=== PATIENT | male | born 1980 | race Caucasian/White ===

== ENCOUNTER 2021-08-30 13:34 | Emergency (ER) | payer MEDICAID ==
[~2021-08-30] VITALS: Ht 175.3 cm; Wt 74.8 kg
[2021-08-30 13:35] VITALS: BP 143/70
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
[2021-08-30] MEDS ORDERED: HYDROcodone/APAP 5/325 MG 1 TAB TAB PO ONE (13:55)
[2021-08-30] MEDS ORDERED: ONDANSETRON 4 MG ODT PO ONE (13:55)
[2021-08-30] MEDS ORDERED: IBUP-2213 PO (15:11)
[2021-08-30] MEDS ORDERED: ACET-8386 PO (15:11)
[2021-08-30] MEDS ORDERED: ONDA-188 SL (15:13)
[2021-08-30] MEDS ORDERED: BACITRACIN OINT 500 UNITS/GM PKT TP ONE (15:30)
--- NOTE | 2021-08-30 16:06 | NUR ---
Patient discharged with v/s stable. Written and verbal after care instructions given and explained. Patient verbalized understanding. Ambulatory with steady gait. All questions addressed prior to discharge. Advised to follow up with PMD.
== END 2021-08-30 16:05 | disposition home or self-care (01) ==
LOC: MED 13:34
DX: S06.0X0A Concussion without loss of consciousness, initial encounter (principal); S20.213A Contusion of bilateral front wall of thorax, initial encounter; S00.03XA Contusion of scalp, initial encounter; M54.2 Cervicalgia; F12.90 Cannabis use, unspecified, uncomplicated; Z79.899 Other long term (current) drug therapy; Z79.1 Long term (current) use of non-steroidal anti-inflammatories (NSAID); Z79.891 Long term (current) use of opiate analgesic; Y08.89XA Assault by other specified means, initial encounter; Y93.89 Activity, other specified; Y92.009 Unspecified place in unspecified non-institutional (private) residence as the place of occurrence of the external cause; Y99.8 Other external cause status
CPT/HCPCS: 70450; 71111; 72125; 99284; Q0162

== ENCOUNTER 2022-05-31 10:45 | Emergency (ER) | payer SELFPAY ==
[~2022-05-31] VITALS: Ht 180.3 cm; Wt 86.2 kg
[~2022-05-31 10:45] MED LIST: ACET-8905 PO; IBUP-2213 PO; ONDA-188 SL
[2022-05-31 11:12] VITALS: BP 141/87
--- NOTE | 2022-05-31 12:00 | NUR ---
EVALUATING THE PATIENT
[2022-05-31] MEDS ORDERED: DICYCLOMINE HCL LIQUID 20 MG, ALUMINUM HYD/MAG/SIMETHICONE 30 ML, LIDOCAINE VISCOUS 2% ... PO ONE ×3 (12:20)
[2022-05-31] MEDS ORDERED: ONDANSETRON 4 MG ODT PO ONE (12:20)
[2022-05-31] MEDS ORDERED: ALUMINUM HYD/MAG/SIMETHICONE 30 ML UDC ONE (12:24)
[2022-05-31] MEDS ORDERED: DICYCLOMINE HCL LIQUID 10 MG/5 ML UDC ONE (12:24)
[2022-05-31 13:00] LABS: BASOPHILS % (AUTO) 0.2 % (0.0-2.0); EOSINOPHILS # (AUTO) 0.2 K/uL (0-0.4); EOSINOPHILS % (AUTO) 1.4 % (0.0-4.0); HEMATOCRIT 45.5 % (36-52); HEMOGLOBIN 15.1 g/dL (12.0-18.0); LYMPHOCYTES # (AUTO) 1.7 K/uL (2.0-11.5); LYMPHOCYTES % (AUTO) 14.7 % (20.5-51.1); MEAN CORPUSCULAR HEMOGLOBIN 28 pg (27-31); MEAN CORPUSCULAR HGB CONC 33 g/dL (33-37); MEAN CORPUSCULAR VOLUME 84.3 fL (80-94); MONOCYTES # (AUTO) 0.8 K/uL (0.8-1.0); MONOCYTES % (AUTO) 6.9 % (1.7-9.3); NEUTROPHILS % (AUTO) 76.8 % (42.2-75.2); PLATELET COUNT (AUTO) 235 K/uL (140-450); RED CELL DISTRIBUTION WIDTH 14.1 % (11.6-13.7); WHITE BLOOD COUNT (AUTO) 11.7 K/uL (4.8-10.8)
--- NOTE | 2022-05-31 13:43 | NUR ---
PATIENT ELOPED FROM FACILITY. DISCHARGE INSTRUCTIONS NOT GIVEN TO PATIENT. MD NOTIFIED.
[2022-05-31 13:54] LABS: ALBUMIN 3.2 g/dL (3.4-5.0); CARBON DIOXIDE 24.3 mmol/L (21-32); CREATININE 0.8 mg/dL (0.6-1.3); TOTAL BILIRUBIN 0.6 mg/dL (0.0-1.0)
[2022-05-31 14:18] LABS: ANION GAP 13.4 (8-16); POTASSIUM 3.9 mmol/L (3.5-5.1)
== END 2022-05-31 13:43 | disposition left against medical advice (07) ==
LOC: MED 10:45
DX: K29.70 Gastritis, unspecified, without bleeding (principal); R50.9 Fever, unspecified; F17.210 Nicotine dependence, cigarettes, uncomplicated; Z72.89 Other problems related to lifestyle; Z79.899 Other long term (current) drug therapy
CPT/HCPCS: 36415; 80053; 83690; 84484; 85025; 93005; 99284; Q0162